=== PATIENT | female | born 1950 | race Caucasian/White ===

== ENCOUNTER → 2017-12-16 09:51 | Outpatient (CLI) | payer MEDICARE, SELFPAY | PROVIDERS: Family Provider Family Medicine; PCP Family Medicine; Visit Provider Family Medicine | DX: M85.852 Other specified disorders of bone density and structure, left thigh (principal); Z78.0 Asymptomatic menopausal state; Z90.722 Acquired absence of ovaries, bilateral | CPT/HCPCS: 77080 ==

== ENCOUNTER → 2018-04-15 10:44 | Outpatient (CLI) | payer MEDICARE, SELFPAY ==
--- NOTE | 2018-04-15 | DI.MG.S_ITS ---
BILATERAL DIGITAL SCREENING MAMMOGRAM 3D/2D WITH CAD: 04/15/2018 CLINICAL: Routine screening. Family history of breast cancer. Comparison is made to exams dated: 04/10/2017 mammogram, 01/31/2016 mammogram, and 01/23/2015 mammogram - [facility]. The tissue of both breasts is extremely dense, which lowers the sensitivity of mammography. Current study was also evaluated with a Computer Aided Detection (CAD) system. No significant masses, calcifications, or other findings are seen in either breast. There has been no significant interval change. IMPRESSION: NEGATIVE There is no mammographic evidence of malignancy. A 1 year screening mammogram is recommended. This exam was interpreted at Station ID: [id number]. NOTE: For mammograms, a report in lay terms will be sent to the patient. Approximately 15% of breast malignancies will not be visualized mammographically. In the management of a palpable breast mass, a negative mammogram must not discourage biopsy of a clinically suspicious lesion. Electronically Signed By: Marixa miller/thuan:04/16/2018 09:05:14 letter sent: Normal Exam ACR BI-RADS Category 1: Negative 3341F
== END ==
PROVIDERS: PCP Family Medicine; Visit Provider Family Medicine
DX: Z12.31 Encounter for screening mammogram for malignant neoplasm of breast (principal); Z80.3 Family history of malignant neoplasm of breast
CPT/HCPCS: 77063; 77067

== ENCOUNTER → 2019-05-11 14:04 | Outpatient (CLI) | payer MEDICARE, SELFPAY ==
--- NOTE | 2019-05-11 | DI.MG.S_ITS ---
BILATERAL DIGITAL SCREENING MAMMOGRAM 3D/2D WITH CAD: 05/11/2019 CLINICAL: Routine screening. Family history of breast cancer. Comparison is made to exams dated: 04/15/2018 mammogram, 04/10/2017 mammogram, and 01/31/2016 mammogram - [facility]. The tissue of both breasts is extremely dense, which lowers the sensitivity of mammography. Current study was also evaluated with a Computer Aided Detection (CAD) system. No significant masses, calcifications, or other findings are seen in either breast. There has been no significant interval change. IMPRESSION: NEGATIVE There is no mammographic evidence of malignancy. A 1 year screening mammogram is recommended. This exam was interpreted at Station ID: [id number]. NOTE: For mammograms, a report in lay terms will be sent to the patient. Approximately 15% of breast malignancies will not be visualized mammographically. In the management of a palpable breast mass, a negative mammogram must not discourage biopsy of a clinically suspicious lesion. Electronically Signed By: Yifan tinsley/thuan:05/11/2019 16:13:03 letter sent: Normal Exam ACR BI-RADS Category 1: Negative 3341F
== END ==
PROVIDERS: PCP Family Medicine; Visit Provider Family Medicine
DX: Z12.31 Encounter for screening mammogram for malignant neoplasm of breast (principal); Z80.3 Family history of malignant neoplasm of breast
CPT/HCPCS: 77063; 77067

== ENCOUNTER → 2019-12-29 12:11 | Outpatient (CLI) | payer MEDICARE, SELFPAY | PROVIDERS: PCP Family Medicine; Referring Provider Family Medicine; Visit Provider Family Medicine | DX: M85.852 Other specified disorders of bone density and structure, left thigh (principal); Z78.0 Asymptomatic menopausal state; Z90.722 Acquired absence of ovaries, bilateral; Z82.62 Family history of osteoporosis | CPT/HCPCS: 77080 ==

== ENCOUNTER → 2020-06-10 08:04 | Outpatient (CLI) | payer MEDICARE, SELFPAY ==
--- NOTE | 2020-06-10 08:07 | DI.MG.S_ITS ---
BILATERAL DIGITAL SCREENING MAMMOGRAM 3D/2D WITH CAD: 06/10/2020 CLINICAL: Routine screening. Family history of breast cancer. Comparison is made to exams dated: 05/11/2019 mammogram, 04/15/2018 mammogram, and 04/10/2017 mammogram - [facility]. The tissue of both breasts is extremely dense, which lowers the sensitivity of mammography. Current study was also evaluated with a Computer Aided Detection (CAD) system. There is an oval asymmetry in the left breast middle depth lateral region seen on the craniocaudal view only. This is more prominent which maybe due to surround fatty tissue. This localizes to the level of the nipple on the tomosynthesis. There also is possible developing architectural distortion in the left breast anterior depth central to the nipple seen on the mediolateral oblique view only. This localizes to the more medial breast on the tomosynthesis. No other significant masses, calcifications, or other findings are seen in either breast. IMPRESSION: INCOMPLETE: NEEDS ADDITIONAL IMAGING EVALUATION 1) Asymmetry in the left breast middle depth lateral region seen on the craniocaudal view only is indeterminate. -Additional views with possible ultrasound are recommended. 2) Possible developing architectural distortion in the left breast anterior depth central to the nipple seen on the mediolateral oblique view only is indeterminate. -Additional views with possible ultrasound are recommended. This exam was interpreted at Station ID: [id number]. NOTE: For mammograms, a report in lay terms will be sent to the patient. Approximately 15% of breast malignancies will not be visualized mammographically. In the management of a palpable breast mass, a negative mammogram must not discourage biopsy of a clinically suspicious lesion. Electronically Signed By: Ben Zavala M.D. slc/:06/12/2020 09:47:09 letter sent: Additional Imaging Needed ACR BI-RADS Category 0: Incomplete 3340F
== END ==
PROVIDERS: PCP Family Medicine; Referring Provider Family Medicine; Visit Provider Family Medicine
DX: Z12.31 Encounter for screening mammogram for malignant neoplasm of breast (principal); Z80.3 Family history of malignant neoplasm of breast
CPT/HCPCS: 77063; 77067

== ENCOUNTER → 2020-06-28 14:38 | Outpatient (CLI) | payer MEDICARE, SELFPAY ==
--- NOTE | 2020-06-28 | DI.US.S_ITS ---
LIMITED ULTRASOUND OF LEFT BREAST AND AXILLA: 06/28/2020 CLINICAL: Short term follow up of the left breast, due for bilateral imaging. Comparison is made to exams dated: 06/28/2020 mammogram and 06/10/2020 mammogram - [facility]. Color flow and real-time ultrasound of the left breast 2-3 o'clock, and axilla regions were performed. Mendez scale images of the real-time examination were reviewed. There is a possible irregular area of fibrocystic tissue with a microlobulated margin in the left breast at 1 o'clock anterior depth. This corresponds in size and location to the mammographic finding, which has been present for multiple studies, but becoming more visible. IMPRESSION: PROBABLY BENIGN The possible irregular area of fibrocystic tissue in the left breast most likely is fibrosis, a fibroadenoma, or fibrocystic change and is probably benign. A follow-up left mammogram and an ultrasound in 6 months is recommended to demonstrate stability. Findings and recommendations were conveyed to the patient at time of exam. This exam was interpreted at Station ID: [id number]. Electronically Signed By: Cherelle escamilla/:06/28/2020 17:32:48 letter sent: Followup Recommended Ultrasound BI-RADS: 3 Probably benign
--- NOTE | 2020-06-28 | DI.MG.S_ITS ---
UNILATERAL LEFT DIGITAL DIAGNOSTIC MAMMOGRAM 3D/2D WITH ADDITIONAL VIEWS: 06/28/2020 CLINICAL: Additional evaluation requested from prior study. Comparison is made to exams dated: 06/10/2020 mammogram, 04/15/2018 mammogram, 04/10/2017 mammogram, and 05/11/2019 mammogram - [facility]. The tissue of left breast is extremely dense, which lowers the sensitivity of mammography. Prior area of architectural distortion is no longer seen in the left breast in the anterior depth. There is a 1 cm oval equal density asymmetry with an obscured and partially circumscribed margin in the left breast middle depth lateral region seen on the craniocaudal view only. This is seen in additional views. This has been present on prior studies and has not significantly changed. No other significant masses or calcifications are seen in the breast. IMPRESSION: INCOMPLETE: NEEDS ADDITIONAL IMAGING EVALUATION The 1 cm oval equal density asymmetry in the left breast most likely is a cyst or a fibroadenoma, is stable, but remains indeterminate. An ultrasound is recommended. This was performed immediately following this exam. Resolution of screening mammogram abnormality of possible architectural distortion in the left breast anteriorly. This exam was interpreted at Station ID: [id number]. NOTE: For mammograms, a report in lay terms will be sent to the patient. Approximately 15% of breast malignancies will not be visualized mammographically. In the management of a palpable breast mass, a negative mammogram must not discourage biopsy of a clinically suspicious lesion. Electronically Signed By: Cherelle escamilla/:06/28/2020 15:24:15 ACR BI-RADS Category 0: Incomplete 3340F
== END ==
PROVIDERS: PCP Family Medicine; Referring Provider Family Medicine; Visit Provider Family Medicine
DX: N63.20 Unspecified lump in the left breast, unspecified quadrant (principal); R92.8 Other abnormal and inconclusive findings on diagnostic imaging of breast
CPT/HCPCS: 76642; 77065; G0279

== ENCOUNTER → 2021-11-26 14:04 | Outpatient (CLI) | payer MEDICARE, SELFPAY | PROVIDERS: PCP Family Medicine; Referring Provider Family Medicine; Visit Provider Family Medicine | DX: Z13.820 Encounter for screening for osteoporosis (principal); M85.851 Other specified disorders of bone density and structure, right thigh; M85.852 Other specified disorders of bone density and structure, left thigh; Z78.0 Asymptomatic menopausal state | CPT/HCPCS: 77080 ==

== ENCOUNTER → 2023-08-14 10:38 | Outpatient (CLI) | payer MEDICARE, SELFPAY ==
--- NOTE | 2023-08-14 | DI.RAD.S_ITS ---
Bone Density Report Name: DREW HOPKINS Age: 72 Sex: Female Ethnicity: White Date of : 1950 Indication: osteopenia; parental hip fracture; Referring Provider: RANDOLPH OROZCO Study: Bone densitometry was performed. Exam Date: August 14, 2023 Accession number: [id number] Bone Density: Region BMD T-score Z-score Classification AP Spine(L1-L4) 0.963 -0.8 1.4 Normal Femoral Neck (Left) 0.613 -2.1 -0.3 Osteopenia Total Hip (Left) 0.800 -1.2 0.4 Osteopenia Femoral Neck (Right) 0.648 -1.8 0.0 Osteopenia Total Hip (Right) 0.864 -0.6 0.9 Normal Total Hip Mean 0.832 -0.9 0.7 Normal World Health Organization criteria for BMD impression classify patients as: Normal (T-score at or above -1.0), Osteopenia (T-score between -1.0 and -2.5), or Osteoporosis (T-score at or below -2.5). 10-year Fracture Risk(1): Major Osteoporotic Fracture 18% Hip Fracture 5.6% Reported Risk Factors: [place] (), Neck BMD=0.613, BMI=22.1, parental fracture (1) FRAX(R) Version 3.08. Fracture probability calculated for an untreated patient. Fracture probability may be lower if the patient has received treatment. Previous Exams: -- Region Exam Age BMD T-score BMD Change BMD Change Date g/cm2 vs Baseline vs Previous -- AP Spine (L1-L4) 08/14/2023 72 0.963 -0.8 -0.201 (-17.3%)# -0.002 (-0.2%)# 11/26/2021 71 0.966 -0.7 -0.199 (-17.1%)# -0.079 (-7.5%)# 12/29/2019 69 1.044 0.0 -0.120 (-10.3%)* 0.032 (3.1%)* 12/16/2017 67 1.013 -0.3 -0.152 (-13.0%)* -0.077 (-7.0%)* 10/02/2009 58 1.089 0.4 -0.075 (-6.4%)* 0.009 (0.9%) 09/27/2008 57 1.080 0.3 -0.084 (-7.2%)* -0.084 (-7.2%)* 08/12/2005 54 1.164 1.1 Total Hip(Left) 08/14/2023 72 0.800 -1.2 -0.174 (-17.9%)# -0.005 (-0.6%)# 11/26/2021 71 0.805 -1.1 -0.169 (-17.4%)# -0.028 (-3.4%)# 12/29/2019 69 0.833 -0.9 -0.142 (-14.5%)* -0.022 (-2.5%) 12/16/2017 67 0.855 -0.7 -0.120 (-12.3%)* -0.081 (-8.6%)* 10/02/2009 58 0.935 -0.1 -0.039 (-4.0%)* 0.026 (2.9%) 09/27/2008 57 0.909 -0.3 -0.065 (-6.7%)* -0.065 (-6.7%)* 08/12/2005 54 0.974 0.3 Total Hip(Right) 08/14/2023 72 0.864 -0.6 -0.158 (-15.5%)# -0.015 (-1.7%)# 11/26/2021 71 0.879 -0.5 -0.143 (-14.0%)# 0.012 (1.4%)# 12/29/2019 69 0.867 -0.6 -0.155 (-15.2%)* 0.006 (0.7%) 12/16/2017 67 0.861 -0.7 -0.162 (-15.8%)* -0.101 (-10.5%)* 10/02/2009 58 0.962 0.2 -0.061 (-5.9%)* 0.005 (0.5%) 09/27/2008 57 0.957 0.1 -0.065 (-6.4%)* -0.065 (-6.4%)* 08/12/2005 54 1.022 0.7 -- *Denotes significance at 95% confidence level, LSC for AP Spine = 0.022 g/cm2, LSC for Total Hip = 0.027 g/cm2 # Denotes dissimilar scan types or analysis methods Impression: The patient has low bone mass, based on the Left Femoral Neck T-score. The patient has an estimated ten-year risk of hip fracture of 5.6% and an estimated ten-year risk of major fracture of 18%, based on the WHO FRAX algorithm. The patient has risk factors, including: parental hip fracture. No significant bone loss was observed. Discussion: BONE DENSITY IS LOW AT ONE OR MORE SKELETAL SITES. THE PATIENT'S BMD AND CLINICAL RISK FACTORS CONTRIBUTE TO THIS PATIENT'S INCREASED RISK OF FRACTURE. This patient's lowest T-score is low at one or more skeletal sites. It meets the World Health Organization's (WHO) criteria for low bone mass (T-score between -1.0 and -2.5). The patient's 10-year risk of hip fracture as calculated by FRAX exceeds the threshold where pharmacological therapy is recommended by the National Osteoporosis Foundation (NOF). However, all treatment decisions require clinical judgment and consideration of individual patient factors, including patient preferences, comorbidities, previous drug use, risk factors not captured in the FRAX model (e.g., frailty, falls, vitamin D deficiency, increased bone turnover, interval significant decline in bone density) and possible under or overestimation of fracture risk by FRAX. The patient should follow a healthful lifestyle (good nutrition with adequate calcium and vitamin D, and appropriate weight-bearing exercise). Follow-Up: Consider a repeat BMD and Vertebral Fracture Assessment (VFA) exam in 2 years or sooner if medically necessary, to reassess this patient's status. Reported by: VIVIAN AMIN M.D. on 08/14/2023 11:12:00 AM.
== END ==
LOC: RAD 10:38
PROVIDERS: PCP Family Medicine; Referring Provider Family Medicine; Visit Provider Family Medicine
DX: M85.89 Other specified disorders of bone density and structure, multiple sites (principal)
CPT/HCPCS: 77080